=== PATIENT | female | born 1990 | race African-American/Black ===

== ENCOUNTER 2017-05-24 08:09 | Observation (INO) | payer BC, MEDICAID ==
[~2017-05-24] VITALS: Ht 167.6 cm; Wt 83.0 kg
[2017-05-24 08:39] VITALS: BP 105/57
[2017-05-24] MEDS ORDERED: ACETAMINOPHEN 500MG TABLET PO ONE (09:15)
[2017-05-24] MEDS ORDERED: FERR325T6 PO (14:32)
[2017-05-24] MEDS ORDERED: ASPI-1159 PO (14:32)
[2017-05-24] MEDS ORDERED: FOLI-43 PO (14:32)
[2017-05-24] MEDS ORDERED: PREN1TAB87 PO (14:32)
== END 2017-05-24 15:20 | disposition home or self-care (01) ==
LOC: ER 08:20 → L&D 14:01
PROVIDERS: ADMIT Specialist; ATTEND Specialist
DX: O26.892 Other specified pregnancy related conditions, second trimester (principal); O32.1XX0 Maternal care for breech presentation, not applicable or unspecified; S39.012A Strain of muscle, fascia and tendon of lower back, initial encounter; M25.511 Pain in right shoulder; Z3A.22 22 weeks gestation of pregnancy; X58.XXXA Exposure to other specified factors, initial encounter; Y93.89 Activity, other specified; Y92.89 Other specified places as the place of occurrence of the external cause; Y99.8 Other external cause status
CPT/HCPCS: 72141; 72148; 76805; 76817; 99281; G0378